=== PATIENT | male | born 1975 | race Caucasian/White ===

== ENCOUNTER 2023-08-05 14:07 | Inpatient (IN) | payer BC ==
[2023-08-05] VITALS (16 sets, daily range): BP systolic 119–148; BP diastolic 69–93; PULSE 85–102; RESP 13–21; TEMP 98.6; O2SAT 88–97
[~2023-08-05] VITALS: Ht 198.1 cm; Wt 160.0 kg
[2023-08-05 14:47] LABS: BASOPHILS % (AUTO) 0.5 % (0-1); EOSINOPHILS % (AUTO) 0.2 % (0-6); HEMOGLOBIN 16.5 g/dl (14.0-17.9); LYMPHOCYTES # (AUTO) 0.8 X10'3 (1.1-4.8); LYMPHOCYTES % (AUTO) 9.8 % (21-51); MEAN CORPUSCULAR HEMOGLOBIN 33.5 PG (27.0-31.0); MEAN CORPUSCULAR HGB CONC 34.5 g/dL (33.0-36.5); MEAN CORPUSCULAR VOLUME 97.2 FL (78-98); MEAN PLATELET VOLUME 7.5 FL (7.4-10.4); MONOCYTES # (AUTO) 0.3 X10'3 (0-0.9); MONOCYTES % (AUTO) 3.3 % (2-12); NEUTROPHILS # (AUTO) 6.7 X10'3 (1.8-7.7); NEUTROPHILS % (AUTO) 86.2 % (42-75); PLATELET COUNT 253 X10'3 (140-440); RED BLOOD COUNT 4.94 X10'6 (4.70-6.10); RED CELL DISTRIBUTION WIDTH 12.8 % (11.5-14.5); WHITE BLOOD COUNT 7.8 X10'3 (4.5-11.0)
[2023-08-05] MEDS ORDERED: ondansetron/PF 4mg/2ml inj IV ONE (15:00)
[2023-08-05] MEDS ORDERED: normal saline 1000ML IV soln IVB ONE ×2 (15:00→15:10)
[2023-08-05] MEDS ORDERED: iohexol 350MG/ML 100ml bottle IV ONE (15:03)
[2023-08-05 15:07] LABS: ALANINE AMINOTRANSFERASE 46 U/L (12-78); ALBUMIN 3.8 G/DL (3.4-5.0); ALBUMIN/GLOBULIN RATIO 0.8 (1.1-1.5); ALKALINE PHOSPHATASE 118 IU/L (46-116); AMYLASE 24 U/L (25-115); ANION GAP 9 (8-16); ASPARTATE AMINO TRANSFERASE 18 U/L (10-37); BILIRUBIN,TOTAL 0.7 MG/DL (0.1-1.0); BLOOD UREA NITROGEN 16 MG/DL (7-18); BUN/CREATININE RATIO 11.4 (10.0-20.0); CALCIUM 9.8 MG/DL (8.5-10.1); CHLORIDE 98 MMOL/L (99-107); GLUCOSE 197 MG/DL (70-104); POTASSIUM 4.2 MMOL/L (3.5-5.1); SODIUM 132 MMOL/L (135-145); TOTAL CARBON DIOXIDE 24.6 MMOL/L (24-32); TOTAL PROTEIN 8.4 G/DL (6.4-8.2); eCRCL 83 ML/MIN; eGFR 54 ML/MIN
[2023-08-05] MEDS: morphine 4 MG/ML inj SYRINge IV PRN (15:12)
[2023-08-05 15:18] LABS: LIPASE 23 U/L (16-77)
[2023-08-05 15:53] LABS: ETHANOL < 10 MG/DL (<10); MAGNESIUM 1.5 MG/DL (1.5-2.4)
[2023-08-05] MEDS ORDERED: normal saline 1000ML IV soln IVB STA (16:12)
[2023-08-05] MEDS ORDERED: piperacillin/tazo 3.375gm/50ml 50 ML IV ONE (16:15)
--- NOTE | 2023-08-05 17:08 | NUR ---
REPORT GIVEN TO METAL FABRICATOR WELDER
[2023-08-05] MEDS ORDERED: sevoflurane 250ml liquid IH ONE (17:16)
[2023-08-05] MEDS ORDERED: midazolam 1 mg/ML 2ml injection ONE (17:26)
[2023-08-05] MEDS ORDERED: fentaNYL /PF 50mcg/ml 5ml ampule ONE (17:30)
[2023-08-05] MEDS ORDERED: BUPIVAcaine/PF 2.5 mg/ml (0.25%) 30ml vial ONE (17:40)
[2023-08-05] MEDS ORDERED: ondansetron/PF 4mg/2ml inj ONE (17:46)
[2023-08-05] MEDS ORDERED: propofol inj 20 ML IV ONE ×2 (17:46)
[2023-08-05] MEDS ORDERED: LIDOcaine 2% (20mg/ml) 5ml vial ONE (17:46)
[2023-08-05] MEDS ORDERED: dexamethasone sod phosphate 4mg/ml inj. ONE (17:46)
[2023-08-05] MEDS ORDERED: rocuronium 10mg/ml inj IV ONE ×2 (17:46)
[2023-08-05] MEDS ORDERED: ceFOXitin 1000 MG inj ONE ×2 (17:46)
[2023-08-05] MEDS ORDERED: BUPIVAcaine/PF 2.5 mg/ml (0.25%) 30ml vial IJ ONE (18:15)
[2023-08-05] MEDS ORDERED: morphine 10mg/ml inj. ONE (18:32)
[2023-08-05] MEDS ORDERED: sugammadex 200mg/2ml injection IV ONE (18:36)
[2023-08-05] MEDS ORDERED: acetaminophen 1,000mg/100ml IV 100 ML IV ONE (18:37)
[2023-08-05] MEDS ORDERED: ketorolac trometh. 30mg/ml inj. ONE (18:38)
--- NOTE | 2023-08-05 18:47 | NUR ---
Received from OR via BED, accompanied by Anesthesiologist Dr Callejas and report given by Anesthesiologist. PATIENT PRESENTS ON 12L VIA MASK WITH LMA IN PLACE. NO S/S OF DISTRESS. NO S/S OF PAIN, V/S WNL, SCD ON, 20G TO RUE, ABDOMEN LAP SITE CLEAN W/ NO S/S OF COMPLICATIONS. FELISA DRAIN IN PLACE. Addendum: 08/05/23 at 1916 by Paulette Balderas RN PATIENT HAS AN ORAL AIRWAY NOT LMA IN PLACE. NO S/S OF DISTRESS.
[2023-08-05] MEDS ORDERED: proCHLORperazine 10 MG/2 ml inj IV PRN (18:50)
[2023-08-05] MEDS ORDERED: labetalol 20mg/4ml (5mg/ml) syringe IV PRN (18:50)
[2023-08-05] MEDS ORDERED: ondansetron/PF 4mg/2ml inj IV PRN ×2 (18:50→19:10)
[2023-08-05] MEDS ORDERED: morphine 2 MG/ML inj. syringe IV PRN (18:50)
[2023-08-05] MEDS ORDERED: morphine 4 MG/ML inj SYRINge IV PRN (18:50)
[2023-08-05] MEDS ORDERED: ringers solution, lacted 1,000 ML IV SCH (18:50)
[2023-08-05] MEDS ORDERED: meperidine/PF 25mg/ml syringe IV PRN ×3 (18:50)
[2023-08-05] MEDS ORDERED: hydrALAZINE 20mg/ml inj. IV PRN (18:50)
[2023-08-05] MEDS ORDERED: potassium Cl 40MEQ/1/2NS 520ml 520 ML IV PRN (19:10)
[2023-08-05] MEDS ORDERED: acetaminophen 325mg tablet PO PRN (19:10)
[2023-08-05] MEDS ORDERED: mag hydrox/Alum hydrox/simeth 30ml oral suspension PO PRN (19:10)
[2023-08-05] MEDS ORDERED: magnesium 4gm in 100ml NS 100 ML IV PRN (19:10)
[2023-08-05] MEDS ORDERED: magnesium hydroxide 30ml (MOM) UD suspension PO PRN (19:10)
[2023-08-05] MEDS ORDERED: magnesium 2GM in 50ml NS 50 ML IV PRN (19:10)
[2023-08-05] MEDS ORDERED: magnesium Cl slow-release 64mg tablet PO PRN (19:10)
[2023-08-05] MEDS ORDERED: potassium Cl 20 mEq SR tablet PO PRN ×2 (19:10)
--- NOTE | 2023-08-05 19:23 | NUR ---
SPOKE WITH ROGER MOORE IN WAITING ROOM. ADVISED OF STATUS.
--- NOTE | 2023-08-05 19:29 | NUR ---
ORAL AIRWAY WAS REMOVED: PT TOLERATED WELL. NO S/S OF DISTRESS AND NO C/O PAIN/NAUSEA
--- NOTE | 2023-08-05 20:07 | NUR ---
PT STABLE FOR TRANSFER TO ROOM 4012B PER MD ORDERS. PATIENT TAKEN TO ROOM FAMILY IN TOW. HOOKED UP TO MONITORS IN ROOM AND GIVEN CALL LIGHT, REPORT GIVEN TO RN WHO HAS TAKEN OVER PATIENT CARE. ALL QUESTIONS, COMMENTS, AND CONCERNS WERE ANSWERED AT THIS TIME. CRN IN ROOM AT TIME OF TRANSFER. ABD LAP SITES REMAINS CDI AND FELISA DRAIN WAS EMPTIED BEFORE TAKEN UP TO ROOM 4012B. THERE ARE NO PERSONAL BELONGINGS WITH PATIENT.
--- NOTE | 2023-08-05 20:21 | NUR ---
patient oriented to room. family at bedside. call light in reach. getting bed senior c web developer in place. no pain noted. VSS. freq vs stable on 2L oxygen for hx sleep apnea. dressing intact.
[2023-08-05] MEDS: K and/or MAG REPLACEMENT MC SCH (22:00)
[2023-08-06] VITALS (10 sets, daily range): BP systolic 129–145; BP diastolic 83–92; PULSE 69–115; RESP 16–20; TEMP 97.5–99; O2SAT 90–95
[2023-08-06] MEDS: piperacillin/tazo 3.375gm/50ml 50 ML IV SCH ×4 (00:01→23:08)
[2023-08-06] MEDS: morphine 4 MG/ML inj SYRINge IV PRN (00:44)
[2023-08-06] MEDS ORDERED: HYDROcodone/acetaminophen 5mg/325mg tablet PO PRN (01:15)
[2023-08-06] MEDS ORDERED: AMLO1CAP62 PO (02:18)
[2023-08-06 06:43] LABS: BASOPHILS % (AUTO) 0.1 % (0-1); EOSINOPHILS % (AUTO) 0 % (0-6); HEMATOCRIT 43.6 % (42.0-52.0); HEMOGLOBIN 14.7 g/dl (14.0-17.9); LYMPHOCYTES # (AUTO) 0.7 X10'3 (1.1-4.8); LYMPHOCYTES % (AUTO) 5.5 % (21-51); MEAN CORPUSCULAR HEMOGLOBIN 33.2 PG (27.0-31.0); MEAN CORPUSCULAR HGB CONC 33.7 g/dL (33.0-36.5); MEAN CORPUSCULAR VOLUME 98.3 FL (78-98); MEAN PLATELET VOLUME 8.2 FL (7.4-10.4); MONOCYTES # (AUTO) 0.8 X10'3 (0-0.9); MONOCYTES % (AUTO) 5.7 % (2-12); NEUTROPHILS # (AUTO) 11.8 X10'3 (1.8-7.7); NEUTROPHILS % (AUTO) 88.7 % (42-75); PLATELET COUNT 201 X10'3 (140-440); RED BLOOD COUNT 4.43 X10'6 (4.70-6.10); RED CELL DISTRIBUTION WIDTH 13.1 % (11.5-14.5); WHITE BLOOD COUNT 13.3 X10'3 (4.5-11.0)
--- NOTE | 2023-08-06 06:43 | NUR ---
reported to days. noted pt resting, pain controlled. noted pt does not have diet order. has only been drinking water. also needs home medication BP med ordered.
[2023-08-06 06:55] LABS: ALANINE AMINOTRANSFERASE 40 U/L (12-78); ALBUMIN/GLOBULIN RATIO 0.7 (1.1-1.5); ALKALINE PHOSPHATASE 84 IU/L (46-116); ANION GAP 6 (8-16); ASPARTATE AMINO TRANSFERASE 16 U/L (10-37); BILIRUBIN,TOTAL 0.9 MG/DL (0.1-1.0); BLOOD UREA NITROGEN 17 MG/DL (7-18); BUN/CREATININE RATIO 11.7 (10.0-20.0); CALCIUM 9.4 MG/DL (8.5-10.1); CHLORIDE 100 MMOL/L (99-107); CREATININE 1.45 MG/DL (0.60-1.10); GLUCOSE 168 MG/DL (70-104); MAGNESIUM 1.8 MG/DL (1.5-2.4); PHOSPHORUS 3.8 MG/DL (2.3-4.5); POTASSIUM 4.3 MMOL/L (3.5-5.1); SODIUM 134 MMOL/L (135-145); TOTAL CARBON DIOXIDE 27.9 MMOL/L (24-32); TOTAL PROTEIN 7.5 G/DL (6.4-8.2); eCRCL 80 ML/MIN; eGFR 52 ML/MIN
[2023-08-06] MEDS: HYDROcodone/acetaminophen 10/325mg tab PO PRN ×3 (07:22→20:59)
[2023-08-06] MEDS ORDERED: AMLODIPINE BESYLATE PO SCH (08:00)
[2023-08-06] MEDS: K and/or MAG REPLACEMENT MC SCH ×2 (08:00→19:02)
[2023-08-06] MEDS ORDERED: BENAZEPRIL PO SCH (08:00)
[2023-08-06] MEDS ORDERED: lisinopril 20mg tablet PO SCH (08:00)
[2023-08-06] MEDS: amLODIPine 5mg tablet PO SCH (08:34)
[2023-08-06] MEDS: morphine 2 MG/ML inj. syringe IV PRN ×3 (13:18→23:09)
--- NOTE | 2023-08-06 13:33 | NUR ---
Dorsalis pedis pulses palpable bilaterally, 1+. Addendum: 08/06/23 at 1409 by Viri KRISHNAMURTHY Amended: Links added.
--- NOTE | 2023-08-06 13:56 | NUR ---
Hydrocodone administration not effective in managing pain. Patient verbalized pain as an "8" 1 hour post administration. IV Morphine administered as secondary pain management intervention. Addendum: 08/06/23 at 1409 by Viri KRISHNAMURTHY Amended: Links added.
[2023-08-06 14:26] LABS: BILIRUBIN,URINE NEGATIVE (Neg); CLARITY,URINE CLEAR (Clear); COLOR,URINE YELLOW (Yellow); GLUCOSE, URINE NEGATIVE (Neg); KETONES,URINE TRACE mg/dl (Neg); LEUKOCYTE ESTERASE ,URINE NEGATIVE (Neg); NITRITES, URINE NEGATIVE (Neg); OCCULT BLOOD,URINE NEGATIVE (Neg); PH,URINE 6.5 (4.8-8.0); PROTEIN,URINE 30 mg/dl (Neg); UROBILINOGEN,URINE 0.2 E.U/dL (0.2-1.0)
[2023-08-06 14:40] LABS: URINE AMPHETAMINE SCREEN NEGATIVE (Neg); URINE BARBITUATE SCREEN NEGATIVE (Neg); URINE BENZODIAZEPINES SCREEN POSITIVE (Neg); URINE CANNABINOID SCREEN POSITIVE (Neg); URINE COCAINE SCREEN NEGATIVE (Neg); URINE METHADONE SCREEN NEGATIVE (Neg); URINE OPIATE SCREEN POSITIVE (Neg); URINE PHENCYCLIDINE SCREEN NEGATIVE (Neg)
[2023-08-06 14:43] LABS: UA COLLECTION TYPE VOIDED
[2023-08-06 14:45] LABS: BACTERIA,URINE FEW /HPF (Neg); FINE GRANULAR CAST 0-3 /LPF (NEGATIVE); HYALINE CASTS 0-3 /LPF (NEGATIVE); MUCUS STRANDS FEW /LPF (Neg); RBC,URINE 0-2 /HPF (0-2); SQUAMOUS EPITHELIAL CELL,UR FEW /LPF (FEW); WBC,URINE 0-4 /HPF (0-4)
[2023-08-06 14:48] LABS: TRANSITIONAL EPI CELLS,URINE FEW /HPF
[2023-08-06] MEDS ORDERED: MULT-227 PO (15:38)
[2023-08-06] MEDS ORDERED: CYAN50009 PO (15:39)
[2023-08-06] MEDS ORDERED: MAGN400T39 PO (15:39)
[2023-08-06] MEDS ORDERED: LEVO5TAB29 PO (15:40)
[2023-08-06] MEDS ORDERED: CALC500T11 PO (15:40)
[2023-08-06] MEDS: normal saline 1000ml 1,000 ML IV SCH (18:23)
[2023-08-07] VITALS (7 sets, daily range): BP systolic 144–162; BP diastolic 94–108; PULSE 110–117; RESP 16–22; TEMP 97.5–98.8; O2SAT 90–95
[2023-08-07] MEDS: HYDROcodone/acetaminophen 10/325mg tab PO PRN ×5 (01:33→21:59)
[2023-08-07] MEDS: morphine 2 MG/ML inj. syringe IV PRN ×5 (04:23→23:44)
--- NOTE | 2023-08-07 06:28 | NUR ---
Patient in room ORTHO 4012. I have received report from HERB MOE and had the opportunity to ask questions and assume patient care.
[2023-08-07 06:58] LABS: BASOPHILS % (AUTO) 0.2 % (0-1); EOSINOPHILS # (AUTO) 0.1 X10'3 (0-0.9); EOSINOPHILS % (AUTO) 0.6 % (0-6); HEMATOCRIT 43.6 % (42.0-52.0); HEMOGLOBIN 14.6 g/dl (14.0-17.9); LYMPHOCYTES # (AUTO) 0.7 X10'3 (1.1-4.8); LYMPHOCYTES % (AUTO) 5.5 % (21-51); MEAN CORPUSCULAR HEMOGLOBIN 32.9 PG (27.0-31.0); MEAN CORPUSCULAR HGB CONC 33.5 g/dL (33.0-36.5); MEAN CORPUSCULAR VOLUME 98.4 FL (78-98); MEAN PLATELET VOLUME 7.9 FL (7.4-10.4); MONOCYTES # (AUTO) 0.5 X10'3 (0-0.9); NEUTROPHILS # (AUTO) 10.6 X10'3 (1.8-7.7); NEUTROPHILS % (AUTO) 89.7 % (42-75); PLATELET COUNT 216 X10'3 (140-440); RED BLOOD COUNT 4.43 X10'6 (4.70-6.10); RED CELL DISTRIBUTION WIDTH 13.3 % (11.5-14.5); WHITE BLOOD COUNT 11.8 X10'3 (4.5-11.0)
[2023-08-07 07:14] LABS: ALANINE AMINOTRANSFERASE 29 U/L (12-78); ALBUMIN 2.7 G/DL (3.4-5.0); ALBUMIN/GLOBULIN RATIO 0.6 (1.1-1.5); ALKALINE PHOSPHATASE 87 IU/L (46-116); ANION GAP 7 (8-16); ASPARTATE AMINO TRANSFERASE 12 U/L (10-37); BILIRUBIN,TOTAL 0.7 MG/DL (0.1-1.0); BLOOD UREA NITROGEN 17 MG/DL (7-18); BUN/CREATININE RATIO 13.5 (10.0-20.0); CALCIUM 9.4 MG/DL (8.5-10.1); CHLORIDE 98 MMOL/L (99-107); CREATININE 1.26 MG/DL (0.60-1.10); GLUCOSE 137 MG/DL (70-104); MAGNESIUM 1.7 MG/DL (1.5-2.4); PHOSPHORUS 3.5 MG/DL (2.3-4.5); POTASSIUM 3.8 MMOL/L (3.5-5.1); SODIUM 132 MMOL/L (135-145); TOTAL CARBON DIOXIDE 27.3 MMOL/L (24-32); TOTAL PROTEIN 7.5 G/DL (6.4-8.2); eCRCL 92 ML/MIN; eGFR 61 ML/MIN
[2023-08-07] MEDS: K and/or MAG REPLACEMENT MC SCH ×2 (08:00→19:21)
[2023-08-07] MEDS: piperacillin/tazo 3.375gm/50ml 50 ML IV SCH ×3 (08:09→23:43)
[2023-08-07] MEDS: amLODIPine 5mg tablet PO SCH (08:09)
[2023-08-07] MEDS ORDERED: calcium carbonate 500mg chew tablet PO PRN ×2 (09:25→09:45)
[2023-08-07] MEDS ORDERED: pantoprazole 40mg IV 40 MG in normal saline 100ml IV soln 100 ML IV ONE (10:05)
[2023-08-07] MEDS: normal saline 1000ml 1,000 ML IV SCH ×2 (13:40→19:26)
--- NOTE | 2023-08-07 18:33 | NUR ---
Problems reprioritized. Patient report given TO HERB MOE, questions answered & plan of care reviewed with .
--- NOTE | 2023-08-07 22:30 | NUR ---
PT UP TO WALK 1 LAP AROUND [employer] STATION. PT VOMITED APPROX 200ML OF GREEN LIQ. PTS ABDO CONTINUES TO BE DISTENDED, FIRM TO TOUCH. Addendum: 08/07/23 at 2314 by Rosina Santoro RN Amended: Links added.
[2023-08-08] MEDS: morphine 2 MG/ML inj. syringe IV PRN ×4 (04:38→23:04)
[2023-08-08 06:12] LABS: BASOPHILS % (AUTO) 0.2 % (0-1); EOSINOPHILS # (AUTO) 0.3 X10'3 (0-0.9); EOSINOPHILS % (AUTO) 2.3 % (0-6); HEMATOCRIT 43.4 % (42.0-52.0); HEMOGLOBIN 14.8 g/dl (14.0-17.9); LYMPHOCYTES # (AUTO) 0.9 X10'3 (1.1-4.8); LYMPHOCYTES % (AUTO) 6.9 % (21-51); MEAN CORPUSCULAR HEMOGLOBIN 33.4 PG (27.0-31.0); MEAN CORPUSCULAR VOLUME 98.2 FL (78-98); MEAN PLATELET VOLUME 7.8 FL (7.4-10.4); MONOCYTES # (AUTO) 0.7 X10'3 (0-0.9); MONOCYTES % (AUTO) 5.4 % (2-12); NEUTROPHILS # (AUTO) 11.2 X10'3 (1.8-7.7); NEUTROPHILS % (AUTO) 85.2 % (42-75); PLATELET COUNT 239 X10'3 (140-440); RED BLOOD COUNT 4.42 X10'6 (4.70-6.10); RED CELL DISTRIBUTION WIDTH 13.1 % (11.5-14.5); WHITE BLOOD COUNT 13.2 X10'3 (4.5-11.0)
[2023-08-08 06:25] LABS: ALANINE AMINOTRANSFERASE 25 U/L (12-78); ALBUMIN 2.5 G/DL (3.4-5.0); ALBUMIN/GLOBULIN RATIO 0.5 (1.1-1.5); ALKALINE PHOSPHATASE 97 IU/L (46-116); ANION GAP 7 (8-16); ASPARTATE AMINO TRANSFERASE 15 U/L (10-37); BILIRUBIN,TOTAL 0.6 MG/DL (0.1-1.0); BLOOD UREA NITROGEN 21 MG/DL (7-18); BUN/CREATININE RATIO 18.8 (10.0-20.0); CALCIUM 9.5 MG/DL (8.5-10.1); CHLORIDE 98 MMOL/L (99-107); CREATININE 1.12 MG/DL (0.60-1.10); GLUCOSE 140 MG/DL (70-104); MAGNESIUM 2.1 MG/DL (1.5-2.4); PHOSPHORUS 3.6 MG/DL (2.3-4.5); POTASSIUM 3.5 MMOL/L (3.5-5.1); SODIUM 131 MMOL/L (135-145); TOTAL CARBON DIOXIDE 25.7 MMOL/L (24-32); TOTAL PROTEIN 7.6 G/DL (6.4-8.2); eCRCL 103 ML/MIN; eGFR 70 ML/MIN
--- NOTE | 2023-08-08 06:25 | NUR ---
Patient in room ORTHO 4012. I have received report from HERB MOE and had the opportunity to ask questions and assume patient care.
--- NOTE | 2023-08-08 06:26 | NUR ---
Problems reprioritized. Patient report given, questions answered & plan of care reviewed with AMBAR MOE. Addendum: 08/08/23 at 0627 by Rosina Santoro RN Amended: Links added.
[2023-08-08 06:42] VITALS: BP 151/108; PULSE 105; RESP 18; TEMP 98.7; O2SAT 91
[2023-08-08] MEDS: piperacillin/tazo 3.375gm/50ml 50 ML IV SCH ×3 (07:09→23:50)
[2023-08-08] MEDS: amLODIPine 5mg tablet PO SCH (07:09)
[2023-08-08] MEDS: HYDROcodone/acetaminophen 10/325mg tab PO PRN ×3 (07:12→20:54)
[2023-08-08] MEDS: K and/or MAG REPLACEMENT MC SCH ×2 (08:00→20:00)
--- NOTE | 2023-08-08 09:43 | NUR ---
PT. BP 159/101 (118) NIKKO, P-105. CONSISTENTLY HIGH ALL DAY ON MY SHIFT. . CALLED MD TO POSSIBLY GET HYDRALAZINE. MD SATED WHEN THEY COME ON THE FLOOR THEY WILL MAKE THE DECISION FOR HYDRALAZINE.
[2023-08-08 10:00] VITALS: BP 168/105; PULSE 101; RESP 16; TEMP 97.8; O2SAT 95
[2023-08-08 10:42] VITALS: RESP 16; O2SAT 95
--- NOTE | 2023-08-08 13:01 | NUR ---
PT. REFUSED TO WALK AT THIS TIME. PT. STATES WANTS TO TALK TO MD ABOUT X-RAY RESULTS FIRST. Addendum: 08/08/23 at 1424 by Ventura Crain RN MD AND SURGEON STATED NEED TO WALK PT. PT GOING TO WALK PT. AT THIS TIME. PT. NG TUBE WILL BE CLAMPED FOR 4H THEN TO CHECK FOR RESIDUAL PER SURGEON ORDERS. PT. ACCEPTED TO WALK.
[2023-08-08] MEDS: normal saline 1000ml 1,000 ML IV SCH ×2 (13:41→20:55)
[2023-08-08] MEDS: hydrALAZINE 20mg/ml inj. IV PRN (14:57)
--- NOTE | 2023-08-08 15:00 | NUR ---
PT. WALKED WITH PT. FRONT WHEEL WALKER 300FT. TOLERATED WELL. PT. DID DESATURATION ON RA, PROVIDED 02 2LNC.
[2023-08-08 18:00] VITALS: BP 129/94; PULSE 105; RESP 19; TEMP 97.5; O2SAT 97
--- NOTE | 2023-08-08 18:48 | NUR ---
Problems reprioritized. Patient report given TO DENG MOE, questions answered & plan of care reviewed with .
--- NOTE | 2023-08-08 18:49 | NUR ---
RECHECKED NG TUBE OUTPUT FROM THE 4H OFF TRIAL, AND NO OUTPUT. CHARGE NURSE WANTS TO TRIAL FOR ANOTHER 4H JUST IN CASE. NEXT TRIAL FOR OUTPUT IS 2200H.
[2023-08-08 22:00] VITALS: BP 141/91; PULSE 100; RESP 23; TEMP 98.5; O2SAT 96
--- NOTE | 2023-08-08 23:00 | NUR ---
reported to ABHI Mayo. noted pt needs to walk, pain control, and need to unclamp NG tube and monitor for output.
[2023-08-09] MEDS: HYDROcodone/acetaminophen 10/325mg tab PO PRN ×3 (01:46→19:03)
[2023-08-09] MEDS: morphine 2 MG/ML inj. syringe IV PRN ×3 (04:34→20:34)
[2023-08-09 05:13] LABS: BASOPHILS # (AUTO) 0.1 X10'3 (0-0.2); BASOPHILS % (AUTO) 0.6 % (0-1); EOSINOPHILS # (AUTO) 0.5 X10'3 (0-0.9); EOSINOPHILS % (AUTO) 3.9 % (0-6); HEMATOCRIT 42.3 % (42.0-52.0); HEMOGLOBIN 14.4 g/dl (14.0-17.9); LYMPHOCYTES # (AUTO) 1.2 X10'3 (1.1-4.8); LYMPHOCYTES % (AUTO) 9.6 % (21-51); MEAN CORPUSCULAR HEMOGLOBIN 33.2 PG (27.0-31.0); MEAN CORPUSCULAR VOLUME 97.5 FL (78-98); MEAN PLATELET VOLUME 7.9 FL (7.4-10.4); MONOCYTES # (AUTO) 0.9 X10'3 (0-0.9); MONOCYTES % (AUTO) 7.2 % (2-12); NEUTROPHILS # (AUTO) 10.2 X10'3 (1.8-7.7); NEUTROPHILS % (AUTO) 78.7 % (42-75); PLATELET COUNT 265 X10'3 (140-440); RED BLOOD COUNT 4.34 X10'6 (4.70-6.10); RED CELL DISTRIBUTION WIDTH 13.5 % (11.5-14.5); WHITE BLOOD COUNT 12.9 X10'3 (4.5-11.0)
[2023-08-09 05:35] LABS: ALANINE AMINOTRANSFERASE 30 U/L (12-78); ALBUMIN 2.4 G/DL (3.4-5.0); ALBUMIN/GLOBULIN RATIO 0.5 (1.1-1.5); ALKALINE PHOSPHATASE 97 IU/L (46-116); ANION GAP 9 (8-16); ASPARTATE AMINO TRANSFERASE 18 U/L (10-37); BILIRUBIN,TOTAL 0.8 MG/DL (0.1-1.0); BLOOD UREA NITROGEN 22 MG/DL (7-18); BUN/CREATININE RATIO 19.5 (10.0-20.0); CALCIUM 9.3 MG/DL (8.5-10.1); CHLORIDE 101 MMOL/L (99-107); CREATININE 1.13 MG/DL (0.60-1.10); GLUCOSE 116 MG/DL (70-104); MAGNESIUM 2.1 MG/DL (1.5-2.4); POTASSIUM 3.5 MMOL/L (3.5-5.1); SODIUM 136 MMOL/L (135-145); TOTAL CARBON DIOXIDE 26.2 MMOL/L (24-32); TOTAL PROTEIN 7.5 G/DL (6.4-8.2); eCRCL 102 ML/MIN; eGFR 69 ML/MIN
[2023-08-09 06:00] VITALS: BP 155/97; PULSE 99; RESP 28; TEMP 98.3; O2SAT 98
[2023-08-09 07:55] LABS: PLATELET ESTIMATE NORMAL; TOTAL CELLS COUNTED 100
[2023-08-09 07:56] LABS: POLYCHROMASIA 1+
[2023-08-09] MEDS: piperacillin/tazo 3.375gm/50ml 50 ML IV SCH ×3 (07:59→23:31)
[2023-08-09] MEDS: K and/or MAG REPLACEMENT MC SCH ×2 (08:00→20:00)
[2023-08-09 08:10] VITALS: RESP 20
[2023-08-09] MEDS: amLODIPine 5mg tablet PO SCH (08:10)
[2023-08-09 10:00] VITALS: BP 135/88; PULSE 100; RESP 22; TEMP 98.3; O2SAT 93
--- NOTE | 2023-08-09 10:27 | NUR ---
ABHI elmore Addendum: 08/09/23 at 1029 by Ana Vogel RN Nurse rounded on this patient while primary nurse is on a 15 min break. This RN asking pt to walk, pt and spuse refused stating Pt is tired. He will walk later. Pt/outbound sales agent educated about the importance of walking for this pt's condition. Both agreed.
[2023-08-09 16:13] VITALS: BP 154/94; PULSE 97; RESP 18; O2SAT 95
[2023-08-09 18:00] VITALS: BP 160/92; PULSE 93; RESP 22; TEMP 98.4; O2SAT 90
[2023-08-09] MEDS: normal saline 1000ml 1,000 ML IV SCH ×2 (20:24→23:31)
[2023-08-09] MEDS: diatr meglu/diatrizoate 30ml oral sol.-(3 dose) bottle PO SCH (20:30)
[2023-08-09] MEDS: HYDROmorphone inj. 0.5 MG/0.5 ML DISP.SYRIN IV PRN (21:45)
[2023-08-09 22:00] VITALS: BP 168/105; PULSE 91; RESP 20; TEMP 97.5; O2SAT 94
[2023-08-10] MEDS: morphine 2 MG/ML inj. syringe IV PRN (01:17)
[2023-08-10] MEDS: HYDROmorphone inj. 0.5 MG/0.5 ML DISP.SYRIN IV PRN ×5 (03:41→23:14)
[2023-08-10] MEDS: HYDROcodone/acetaminophen 10/325mg tab PO PRN ×2 (05:13→19:41)
[2023-08-10 06:00] VITALS: BP 161/94; PULSE 94; RESP 16; TEMP 98; O2SAT 94
--- NOTE | 2023-08-10 06:18 | NUR ---
Problems reprioritized. Patient report given, questions answered & plan of care reviewed with ABHI Charles.
[2023-08-10 06:32] LABS: BASOPHILS % (AUTO) 0.4 % (0-1); EOSINOPHILS # (AUTO) 0.4 X10'3 (0-0.9); EOSINOPHILS % (AUTO) 4.1 % (0-6); HEMATOCRIT 41.9 % (42.0-52.0); HEMOGLOBIN 14.1 g/dl (14.0-17.9); LYMPHOCYTES # (AUTO) 0.9 X10'3 (1.1-4.8); LYMPHOCYTES % (AUTO) 8.3 % (21-51); MEAN CORPUSCULAR HEMOGLOBIN 33.3 PG (27.0-31.0); MEAN CORPUSCULAR HGB CONC 33.8 g/dL (33.0-36.5); MEAN CORPUSCULAR VOLUME 98.5 FL (78-98); MEAN PLATELET VOLUME 8.2 FL (7.4-10.4); MONOCYTES # (AUTO) 1.2 X10'3 (0-0.9); MONOCYTES % (AUTO) 11.6 % (2-12); NEUTROPHILS # (AUTO) 7.8 X10'3 (1.8-7.7); NEUTROPHILS % (AUTO) 75.6 % (42-75); PLATELET COUNT 242 X10'3 (140-440); RED BLOOD COUNT 4.25 X10'6 (4.70-6.10); RED CELL DISTRIBUTION WIDTH 13.5 % (11.5-14.5); WHITE BLOOD COUNT 10.3 X10'3 (4.5-11.0)
[2023-08-10 07:02] LABS: ALANINE AMINOTRANSFERASE 38 U/L (12-78); ALBUMIN 2.2 G/DL (3.4-5.0); ALBUMIN/GLOBULIN RATIO 0.5 (1.1-1.5); ALKALINE PHOSPHATASE 89 IU/L (46-116); ANION GAP 10 (8-16); ASPARTATE AMINO TRANSFERASE 20 U/L (10-37); BILIRUBIN,TOTAL 0.8 MG/DL (0.1-1.0); BLOOD UREA NITROGEN 19 MG/DL (7-18); BUN/CREATININE RATIO 18.1 (10.0-20.0); CHLORIDE 103 MMOL/L (99-107); CREATININE 1.05 MG/DL (0.60-1.10); GLUCOSE 108 MG/DL (70-104); MAGNESIUM 2.1 MG/DL (1.5-2.4); PHOSPHORUS 4.2 MG/DL (2.3-4.5); POTASSIUM 3.4 MMOL/L (3.5-5.1); SODIUM 138 MMOL/L (135-145); TOTAL CARBON DIOXIDE 24.9 MMOL/L (24-32); TOTAL PROTEIN 6.8 G/DL (6.4-8.2); eCRCL 110 ML/MIN; eGFR 75 ML/MIN
[2023-08-10] MEDS: diatr meglu/diatrizoate 30ml oral sol.-(3 dose) bottle PO SCH ×2 (07:49→21:00)
[2023-08-10 07:50] VITALS: RESP 20; O2SAT 95
[2023-08-10] MEDS: heparin, porcine 5000 units/ml vial SQ SCH ×2 (08:00→19:41)
[2023-08-10] MEDS: K and/or MAG REPLACEMENT MC SCH ×2 (08:00→19:20)
--- NOTE | 2023-08-10 08:00 | NUR ---
Attempt to amb patient. He continues to refuse.
[2023-08-10] MEDS ORDERED: iohexol 350MG/ML 100ml bottle IV ONE (08:26)
[2023-08-10 08:32] LABS: NUCLEATED RED BLOOD CELLS 1 /100WBC (0-0); TOTAL CELLS COUNTED 100
[2023-08-10 08:33] LABS: PLATELET ESTIMATE NORMAL; POLYCHROMASIA FEW
[2023-08-10] MEDS: normal saline 1000ml 1,000 ML IV SCH (09:02)
[2023-08-10] MEDS: piperacillin/tazo 3.375gm/50ml 50 ML IV SCH ×2 (09:03→17:13)
[2023-08-10] MEDS: amLODIPine 5mg tablet PO SCH (09:16)
[2023-08-10 10:00] VITALS: BP 147/92; PULSE 106; RESP 20; TEMP 97; O2SAT 91
--- NOTE | 2023-08-10 13:09 | NUR ---
Initial: Pt DX acute perforated appendicitis s/p laparoscopic appendectomy POD #5, postoperative ileus with NG tube for suction in place, and acute kidney injury per EMR. Per T/C discussion with RN, pt reports his ht is 6'9" and RN agreeable to obtaining scaled weight today as possible. Pt prior on clear liquids 08/06 until 08/08, NPO on 08/08 and continues NPO due to postop ileus. Pt now inadequate nutrition day 6; physician yaneth. Recommend initiating TPN due to prolonged inadequate nutrition; See TPN recs below. Abdomen FELISA drain in place as well as NG tube on intermittent low for suction with 180ml output on 08/09. 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 Will continue to monitor and make recommendations as appropriate. Recommendations: 1.Advance diet as medically able to heart healthy 2.consider initiating TPN once central line has been placed and/or if diet has not advanced. 3.IF initiating TPN; Clinimix 5/20E at 110 ml/hr with seperate 250ml 20% intralipids to run at 20.833ml/hr for 12 hours/day. To provide 2640ml total volume/day, 132g of AA, 528g of dextrose (GIR 2.29g/kg/min), and 2823kcal. 4.IF TPN Prealbumin/TG qMond/ 5.IF TPN Scaled wt this admit; subsequent daily scaled wt 6.Routine bowel care per Addendum: 08/10/23 at [address] Amended: Links added.
[2023-08-10] MEDS ORDERED: magnesium 4gm in 100ml NS 100 ML IV PRN (16:25)
[2023-08-10] MEDS ORDERED: potassium Cl 40MEQ/1/2NS 520ml 520 ML IV PRN (16:25)
[2023-08-10] MEDS ORDERED: potassium Cl 20 mEq SR tablet PO PRN (16:25)
[2023-08-10] MEDS ORDERED: magnesium 2GM in 50ml NS 50 ML IV PRN (16:25)
[2023-08-10] MEDS ORDERED: magnesium Cl slow-release 64mg tablet PO PRN (16:25)
[2023-08-10] MEDS ORDERED: mineral oil 133ml enema RC PRN (17:50)
[2023-08-10] MEDS ORDERED: bisacodyl 10mg suppository rectal RC PRN (17:50)
[2023-08-10 18:00] VITALS: BP 149/91; PULSE 99; RESP 18; TEMP 97.7; O2SAT 94
--- NOTE | 2023-08-10 18:57 | NUR ---
Patient in room ORTH[facility] 4012. I have received report from CRAL MOE and had the opportunity to ask questions and assume patient care.
[2023-08-10 22:00] VITALS: BP 136/94; PULSE 90; RESP 16; TEMP 97.6; O2SAT 93
[2023-08-11] MEDS: piperacillin/tazo 3.375gm/50ml 50 ML IV SCH ×4 (00:14→23:44)
[2023-08-11] MEDS: HYDROcodone/acetaminophen 10/325mg tab PO PRN ×3 (02:25→23:43)
--- NOTE | 2023-08-11 03:49 | NUR ---
PATIENT PASSING GAS AND AMBULATED 300 FT
[2023-08-11] MEDS: HYDROmorphone inj. 0.5 MG/0.5 ML DISP.SYRIN IV PRN ×2 (05:34→10:04)
[2023-08-11 06:00] VITALS: BP 156/89; PULSE 86; RESP 19; TEMP 98.5; O2SAT 94
--- NOTE | 2023-08-11 06:20 | NUR ---
Problems reprioritized. Patient report given, questions answered & plan of care reviewed with CARL MOE.
[2023-08-11 07:45] VITALS: RESP 18; O2SAT 96
[2023-08-11] MEDS: amLODIPine 5mg tablet PO SCH (07:54)
[2023-08-11] MEDS: heparin, porcine 5000 units/ml vial SQ SCH ×2 (07:55→20:32)
[2023-08-11] MEDS: K and/or MAG REPLACEMENT MC SCH ×2 (08:00→20:00)
[2023-08-11 08:13] LABS: BASOPHILS % (AUTO) 0.5 % (0-1); EOSINOPHILS # (AUTO) 0.4 X10'3 (0-0.9); EOSINOPHILS % (AUTO) 4.3 % (0-6); HEMATOCRIT 40.4 % (42.0-52.0); HEMOGLOBIN 13.6 g/dl (14.0-17.9); LYMPHOCYTES # (AUTO) 0.9 X10'3 (1.1-4.8); LYMPHOCYTES % (AUTO) 9.1 % (21-51); MEAN CORPUSCULAR HEMOGLOBIN 32.7 PG (27.0-31.0); MEAN CORPUSCULAR HGB CONC 33.6 g/dL (33.0-36.5); MEAN CORPUSCULAR VOLUME 97.1 FL (78-98); MEAN PLATELET VOLUME 8.2 FL (7.4-10.4); MONOCYTES # (AUTO) 1.3 X10'3 (0-0.9); MONOCYTES % (AUTO) 12.7 % (2-12); NEUTROPHILS # (AUTO) 7.5 X10'3 (1.8-7.7); NEUTROPHILS % (AUTO) 73.4 % (42-75); PLATELET COUNT 244 X10'3 (140-440); RED BLOOD COUNT 4.16 X10'6 (4.70-6.10); RED CELL DISTRIBUTION WIDTH 13.4 % (11.5-14.5); WHITE BLOOD COUNT 10.3 X10'3 (4.5-11.0)
[2023-08-11 08:35] LABS: ALANINE AMINOTRANSFERASE 50 U/L (12-78); ALBUMIN 2.2 G/DL (3.4-5.0); ALBUMIN/GLOBULIN RATIO 0.5 (1.1-1.5); ALKALINE PHOSPHATASE 92 IU/L (46-116); ANION GAP 11 (8-16); ASPARTATE AMINO TRANSFERASE 26 U/L (10-37); BILIRUBIN,TOTAL 0.8 MG/DL (0.1-1.0); BLOOD UREA NITROGEN 16 MG/DL (7-18); BUN/CREATININE RATIO 15.1 (10.0-20.0); CALCIUM 8.5 MG/DL (8.5-10.1); CHLORIDE 102 MMOL/L (99-107); CREATININE 1.06 MG/DL (0.60-1.10); GLUCOSE 99 MG/DL (70-104); POTASSIUM 3.3 MMOL/L (3.5-5.1); SODIUM 138 MMOL/L (135-145); TOTAL CARBON DIOXIDE 24.7 MMOL/L (24-32); TOTAL PROTEIN 6.6 G/DL (6.4-8.2); eCRCL 109 ML/MIN; eGFR 74 ML/MIN
[2023-08-11 09:19] LABS: TOTAL CELLS COUNTED 100
[2023-08-11 09:21] LABS: LARGE PLATELETS FEW; PLATELET ESTIMATE NORMAL
[2023-08-11 10:00] VITALS: BP 142/80; PULSE 99; RESP 18; TEMP 99.2; O2SAT 92
[2023-08-11] MEDS: potassium Cl 20 mEq SR tablet PO PRN ×3 (10:04→23:44)
--- NOTE | 2023-08-11 10:28 | NUR ---
Patient in room ORTH[facility] 4012. I have received report from ABHI Charles and had the opportunity to ask questions and assume patient care.
[2023-08-11] MEDS: normal saline 1000ml 1,000 ML IV SCH ×2 (10:53→23:45)
--- NOTE | 2023-08-11 12:47 | NUR ---
took orders from dr rodriguez asked if i could put them in for the nurse, i did so per his orders. primary nurse notified.
--- NOTE | 2023-08-11 12:47 | NUR ---
Problems reprioritized. Patient report given, questions answered & plan of care reviewed with ABHI Charles.
--- NOTE | 2023-08-11 17:30 | NUR ---
DC NG without difficulty
[2023-08-11 18:00] VITALS: BP 144/87; PULSE 95; RESP 16; TEMP 98.9; O2SAT 92
[2023-08-11 20:20] VITALS: RESP 18; O2SAT 96
[2023-08-11 22:00] VITALS: BP 157/99; PULSE 95; RESP 16; TEMP 98.9; O2SAT 92
[2023-08-11] MEDS: hydrALAZINE 20mg/ml inj. IV PRN (23:44)
[2023-08-12] MEDS: HYDROcodone/acetaminophen 10/325mg tab PO PRN ×2 (03:49→08:14)
[2023-08-12 06:00] VITALS: BP 141/90; PULSE 84; RESP 19; TEMP 97.7; O2SAT 94
--- NOTE | 2023-08-12 06:33 | NUR ---
Problems reprioritized. Patient report given, questions answered & plan of care reviewed with KAIT Cee.
[2023-08-12 08:00] VITALS: RESP 19; O2SAT 94
[2023-08-12 08:01] LABS: ALANINE AMINOTRANSFERASE 65 U/L (12-78); ALBUMIN 2.1 G/DL (3.4-5.0); ALBUMIN/GLOBULIN RATIO 0.5 (1.1-1.5); ALKALINE PHOSPHATASE 102 IU/L (46-116); ANION GAP 8 (8-16); ASPARTATE AMINO TRANSFERASE 35 U/L (10-37); BILIRUBIN,TOTAL 0.8 MG/DL (0.1-1.0); BLOOD UREA NITROGEN 14 MG/DL (7-18); BUN/CREATININE RATIO 12.5 (10.0-20.0); CALCIUM 8.8 MG/DL (8.5-10.1); CHLORIDE 103 MMOL/L (99-107); CREATININE 1.12 MG/DL (0.60-1.10); GLUCOSE 84 MG/DL (70-104); POTASSIUM 3.2 MMOL/L (3.5-5.1); SODIUM 137 MMOL/L (135-145); TOTAL CARBON DIOXIDE 26.1 MMOL/L (24-32); TOTAL PROTEIN 6.4 G/DL (6.4-8.2); eCRCL 103 ML/MIN; eGFR 70 ML/MIN
[2023-08-12] MEDS: piperacillin/tazo 3.375gm/50ml 50 ML IV SCH (08:02)
[2023-08-12] MEDS: K and/or MAG REPLACEMENT MC SCH (08:02)
[2023-08-12] MEDS: amLODIPine 5mg tablet PO SCH (08:12)
[2023-08-12] MEDS: potassium Cl 20 mEq SR tablet PO PRN (08:17)
[2023-08-12] MEDS: heparin, porcine 5000 units/ml vial SQ SCH (08:37)
[2023-08-12 10:00] VITALS: BP 144/80; PULSE 85; RESP 16; TEMP 98.2; O2SAT 93
[2023-08-12] MEDS ORDERED: AMOX-117 PO (12:43)
[2023-08-12] MEDS ORDERED: LACT1CAP26 PO (12:43)
--- NOTE | 2023-08-12 13:00 | NUR ---
I have reviewed and agree with interventions, assessments, and documentation by Jaye Turner LVN.
--- NOTE | 2023-08-12 13:57 | NUR ---
Patient discharged home via POV. Personal belongings sent with, sandra d/c'd with tip in tact. Patient alert and appropriate at the time of discharge.
== END 2023-08-12 13:55 | disposition home or self-care (01) | DRG 398 ==
LOC: ER 14:09 → ORTHO 4S 19:13
PROVIDERS: ADMIT Family Medicine; ATTEND Family Medicine
PROC: BW211ZZ Computerized Tomography (CT Scan) of Abdomen and Pelvis using Low Osmolar Contrast (ICD-10-PCS; 2023-08-05)
PROC: 0DTJ4ZZ Resection of Appendix, Percutaneous Endoscopic Approach (ICD-10-PCS; principal; 2023-08-05 17:16)
DX: K35.33 Acute appendicitis with perforation, localized peritonitis, and gangrene, with abscess (principal); K56.7 Ileus, unspecified; K91.89 Other postprocedural complications and disorders of digestive system; I10 Essential (primary) hypertension; K66.0 Peritoneal adhesions (postprocedural) (postinfection); Z79.899 Other long term (current) drug therapy
CPT/HCPCS: 99285; Z7506; Z7508; 36415; 74018; 74177; 80053; 80305; 80320; 81001; 82150; 82948; 83690; 83735; 84100; 85007; 85025; 87081; 97116; 97161; 97530; A4215; A4615; A4618; A6209; A6449; A7000; C9113; G0378; J0131; J0360; J0694; J1100; J1170; J1644; J1885; J2250; J2270; J2274; J2405; J2543; J2704; J3010; J3490; J7030; Q9963; Q9967